=== PATIENT | female | born 1960 | race Asian ===

== ENCOUNTER → 2017-11-18 | Outpatient (CLI) | payer OTHER ==
[~2017-11-18] MED LIST: BUPIVACAINE MPF 0.25% 10 ML VIAL. ONE; LIDOCAINE 1% PF 30 ML VIAL. ONE; methylPREDNISolone ACETATE 40 MG/ML VIAL. ONE
== END | disposition home or self-care (01) ==
LOC: SURG 13:51
PROVIDERS: ATTEND Anesthesiology Pain Medicine
DX: M75.51 Bursitis of right shoulder (principal)
CPT/HCPCS: 99213; J1030; J2001; J3490

== ENCOUNTER 2019-07-11 22:28 | Emergency (ER) | payer OTHER ==
[~2019-07-11] VITALS: Ht 167.6 cm; Wt 83.5 kg
[2019-07-11] MEDS ORDERED: ORPHENADRINE CITRATE 60 MG/2 ML VIAL. IM ONE (23:00)
[2019-07-11] MEDS ORDERED: HYDR-3165 PO (23:01)
[2019-07-11] MEDS ORDERED: METH-38 PO (23:01)
--- NOTE | 2019-07-11 23:02 | PHYS DOC ---
Past History Past Medical History: DVT Additional Past Medical Histor: takes xarelto. Past Surgical History: Hysterectomy Additional Past Surgical Histo: dental implant Alcohol Use: None Drug Use: None Adult General Chief Complaint Chief Complaint: SHOULDER INJURY HPI HPI Patient is a 58-year-old female who presents with neck and right shoulder pain. She states she tripped and marely her neck last night. She woke up this morning unable to move her neck in all directions. She states she had some pain radiating to the right shoulder. She states it just feels tight to try to turn her neck. She denies any bowel or bladder dysfunction. Review of Systems Review of Systems Constitutional: Denies fever or chills [] Eyes: Denies change in visual acuity, redness, or eye pain [] HENT: Denies nasal congestion or sore throat [] Respiratory: Denies cough or shortness of breath [] Cardiovascular: No additional information not addressed in HPI [] GI: Denies abdominal pain, nausea, vomiting, bloody stools or diarrhea [] : Denies dysuria or hematuria [] Musculoskeletal: Per history of present illness[] Integument: Denies rash or skin lesions [] Neurologic: Denies headache, focal weakness or sensory changes [] Endocrine: Denies polyuria or polydipsia [] All other systems were reviewed and found to be within normal limits, except as documented in this note. Allergies Allergies Allergies Coded Allergies Type Severity Reaction Last Updated Verified cephalexin Allergy Unknown 07/11/19 Yes ibuprofen Allergy Unknown 07/11/19 Yes iodine Allergy Unknown 07/11/19 Yes levofloxacin Allergy Unknown 07/11/19 Yes Physical Exam Physical Exam Constitutional: Well developed, well nourished, no acute distress, non-toxic appearance. [] HENT: Normocephalic, atraumatic, bilateral external ears normal, oropharynx moist, no oral exudates, nose normal. [] Eyes: PERRLA, EOMI, conjunctiva normal, no discharge. [] Neck: Decreased range of motion secondary to pain. There is no midline vertebral tenderness she does have some right paraspinal muscle spasm and some spasm in the right trapezius.. [] Cardiovascular:Heart rate regular rhythm, no murmur [] Lungs & Thorax: Bilateral breath sounds clear to auscultation [] Abdomen: Bowel sounds normal, soft, no tenderness, no masses, no pulsatile masses. [] Skin: Warm, dry, no erythema, no rash. [] Back: No tenderness, no CVA tenderness. [] Extremities: No tenderness, no cyanosis, no clubbing, ROM intact, no edema. [] Neurologic: Alert and oriented X 3, normal motor function, normal sensory function, no focal deficits noted. [] Psychologic: Affect normal, judgement normal, mood normal. [] Current Patient Data Vital Signs Vital Signs Date Time Temp Pulse Resp B/P (MAP) Pulse Ox O2 Delivery O2 Flow Rate FiO2 07/11/19 22:39 98.2 76 16 96 Room Air EKG EKG [] Radiology/Procedures Radiology/Procedures [] Course & Med Decision Making Course & Med Decision Making Pertinent Labs and Imaging studies reviewed. (See chart for details) [] Dragon Disclaimer Dragon Disclaimer This electronic medical record was generated, in whole or in part, using a voice recognition dictation system. Departure Departure: Impression: Primary Impression: Acute cervical sprain Disposition: HOME, SELF-CARE Condition: STABLE Referrals: MOE GUZMAN DO (PCP) Patient Instructions: Cervical Sprain, Cervical Strain and Sprain with Rehab- [facility] Additional Instructions: Return to emergency department with any new or concerning symptoms Scripts Methocarbamol (ROBAXIN-750) 750 Mg Tablet 1 TAB PO BID for MUSCLE SPASM for 30 Days, #60 TAB 0 Refills Prov: EULALIA LEHMAN DO 07/11/19 Hydrocodone Bit/Acetaminophen (NORCO 5-325 TABLET) 1 Each Tablet 1-2 TAB PO Q4-6HRS for PAIN, #20 TAB Prov: EULALIA LEHMAN DO 07/11/19 Problem Qualifiers Primary Impression: Acute cervical sprain Encounter type: initial encounter Qualified Codes: S13.9XXA - Sprain of joints and ligaments of unspecified parts of neck, initial encounter EULALIA LEHMAN DO Jul 11, 2019 23:02
[2019-07-11 23:32] VITALS: BP 125/86
[2019-07-19] MEDS ORDERED: RIVA10TA PO (10:59)
== END 2019-07-11 23:32 | disposition home or self-care (01) ==
LOC: ER 22:28
DX: S13.9XXA Sprain of joints and ligaments of unspecified parts of neck, initial encounter (principal); Z86.718 Personal history of other venous thrombosis and embolism; Z88.1 Allergy status to other antibiotic agents; Z88.5 Allergy status to narcotic agent; Z88.6 Allergy status to analgesic agent; Z88.8 Allergy status to other drugs, medicaments and biological substances; W01.0XXA Fall on same level from slipping, tripping and stumbling without subsequent striking against object, initial encounter; Y93.89 Activity, other specified; Y92.89 Other specified places as the place of occurrence of the external cause; Y99.8 Other external cause status
CPT/HCPCS: 96372; 99283; J2360

== ENCOUNTER → 2019-07-21 | Day surgery (SDC) | payer OTHER ==
[~2019-07-21] MED LIST changes: +ACETAMINOPHEN 325 MG TABLET PO PRN; +ALBUTEROL SULFATE 2.5 MG/3 ML NEBU. NEB PRN; +ATROPINE 0.5 MG/5 ML DISP.SYRIN. IV PRN; -BUPIVACAINE MPF 0.25% 10 ML VIAL. ONE; +HYDR-3165 PO; +IV RINGERS SOLUTION,LACTATED 1,000 ML IV SCH; -LIDOCAINE 1% PF 30 ML VIAL. ONE; +METH-38 PO; +MIDAZOLAM HCL PF 2 MG/2 ML VIAL. IV PRN; +ONDANSETRON PF 4 MG/2 ML VIAL. IV PRN; +PHENOL ORAL SPRAY 177ML BOTTLE. MM PRN; +PROPOFOL 40 ML IV ONE; +RIVA10TA PO; +diphenhydrAMINE 50 MG/ML VIAL IV PRN; -methylPREDNISolone ACETATE 40 MG/ML VIAL. ONE
[2019-07-21 13:03] VITALS: BP 106/67
== END | disposition home or self-care (01) ==
LOC: SURG 09:43
PROVIDERS: ATTEND Internal Medicine Gastroenterology
DX: Z12.11 Encounter for screening for malignant neoplasm of colon (principal); K64.8 Other hemorrhoids; K63.89 Other specified diseases of intestine; J45.909 Unspecified asthma, uncomplicated; Z91.041 Radiographic dye allergy status; Z88.8 Allergy status to other drugs, medicaments and biological substances; Z79.899 Other long term (current) drug therapy; Z86.718 Personal history of other venous thrombosis and embolism; Z98.890 Other specified postprocedural states
CPT/HCPCS: 45378; J2704; J7120

== ENCOUNTER 2019-08-06 15:57 | Emergency (ER) | payer OTHER ==
[~2019-08-06] VITALS: Ht 167.6 cm; Wt 81.8 kg
[2019-08-06 15:57] VITALS: BP 116/63
[~2019-08-06 15:57] MED LIST changes: -ACETAMINOPHEN 325 MG TABLET PO PRN; -ALBUTEROL SULFATE 2.5 MG/3 ML NEBU. NEB PRN; -ATROPINE 0.5 MG/5 ML DISP.SYRIN. IV PRN; -IV RINGERS SOLUTION,LACTATED 1,000 ML IV SCH; -MIDAZOLAM HCL PF 2 MG/2 ML VIAL. IV PRN; -ONDANSETRON PF 4 MG/2 ML VIAL. IV PRN; -PHENOL ORAL SPRAY 177ML BOTTLE. MM PRN; -PROPOFOL 40 ML IV ONE; -diphenhydrAMINE 50 MG/ML VIAL IV PRN
--- NOTE | 2019-08-06 16:19 | PHYS DOC ---
Past History Past Medical History: DVT (and pulmonary embolism) Additional Past Medical Histor: takes xarelto. Past Surgical History: Hysterectomy Additional Past Surgical Histo: dental implant Alcohol Use: None Drug Use: None Adult General Chief Complaint Chief Complaint: SORE THROAT [facility] HPI patient is a 58-year-old female who presents to the emergency department for evaluation. She has had nasal congestion and sinus pressure on and off for the past 10 days. She was seen at urgent care last week, and got slightly better over the weekend but developed some postnasal drip and a sore throat over the past 24 hours, she feels there is something stuck in her throat, when she swallows, but she is able to talk and swallow normally, and is having no stridor or difficulty breathing. She has not had any fevers or chills, focal headache, vision changes, chest pain, or significant shortness of breath. There are no alleviating or exacerbating factors to her symptoms. Patient denies recent travel. She states she was put on doxycycline at her urgent care visit. Review of Systems Review of Systems Constitutional: Denies fever or chills [] Eyes: Denies change in visual acuity, redness, or eye pain [] HENT: As per history of present illness[] Respiratory: Denies cough or shortness of breath [] Cardiovascular: No additional information not addressed in HPI [] GI: Denies abdominal pain, nausea, vomiting, bloody stools or diarrhea [] : Denies dysuria or hematuria [] Musculoskeletal: Denies back pain or joint pain [] Integument: Denies rash or skin lesions [] Neurologic: Denies headache, focal weakness or sensory changes [] Endocrine: Denies polyuria or polydipsia [] All other systems were reviewed and found to be within normal limits, except as documented in this note. Allergies Allergies Allergies Coded Allergies Type Severity Reaction Last Updated Verified cephalexin Allergy Unknown 07/21/19 Yes ibuprofen Allergy Unknown 07/21/19 Yes iodine Allergy Unknown 07/21/19 Yes levofloxacin Allergy Unknown 07/21/19 Yes Physical Exam Physical Exam PHYSICAL EXAM: CONSTITUTIONAL: Well developed, well nourished HEAD: normocephalic, atraumatic EENT: PERRL, EOMI. Conjunctivae normal color, sclerae non-icteric; moist mucous membranes. Tympanic membranes are normal. There is mild pharyngeal erythema without exudate, uvula deviation, or peritonsillar edema. NECK: Supple, non-tender; no meningismus. There is mildly enlarged, but nontender, submandibular lymphadenopathy. There is no tenderness to palpation of the larynx, there is no stridor. Voice is normal. Patient speaks in full sentences. LUNGS: Lungs CTA, breathing even and unlabored. Normal air movement. HEART: Regular rate and rhythm, no murmur CHEST: No deformity; non-tender ABDOMEN: The abdomen is soft, and non-tender, no masses or bruits. EXTREM: Normal ROM; no deformity, no calf tenderness. Normal pulses palpable in all extremities. There is no pedal edema. SKIN: No rash; no diaphoresis NEURO: Alert; normal speech and cognition; CN's grossly intact; strength grossly intact without focal deficit. BACK: No CVA TTP. EKG EKG [] Radiology/Procedures Radiology/Procedures PROCEDURE: CHEST PA & LATERAL CHEST PA LATERAL INDICATION: Dyspnea. COMPARISON STUDY: None. FINDINGS: Lungs: Normal lung volume. No pulmonary mass or consolidation. The tracheobronchial tree and hilar structures are normal. Pleura: No pleural effusion or pneumothorax. Heart and Mediastinum: The cardiomediastinal silhouette is normal. The great vessels of the thorax are normal. Bones and Soft Tissues: The bones and soft tissues are within normal limits. IMPRESSION: No acute cardiopulmonary process.[] PROCEDURE: NECK SOFT TISSUE NECK SOFT TISSUE DATE: 08/06/2019 4:13 PM INDICATION: Throat pain COMPARISON: None. FINDINGS/ IMPRESSION: No prevertebral soft tissue swelling. No epiglottic swelling. No opaque foreign body. Mild multilevel degenerative disc disease. Course & Med Decision Making Course & Med Decision Making Strep/flu negative. Pertinent Labs and Imaging studies reviewed. (See chart for details) [] Patient remains stable. I discussed test results, the need for close follow- up,Home care plan and expectant management,and return precautions. Dragon Disclaimer Dragon Disclaimer This electronic medical record was generated, in whole or in part, using a voice recognition dictation system. Departure Departure: Impression: Primary Impression: Upper respiratory infection Disposition: HOME, SELF-CARE Condition: STABLE Referrals: MOE GUZMAN DO (PCP) Patient Instructions: Upper Respiratory Infection, Adult, Viral Pharyngitis JOSE CRAWFORD MD Aug 06, 2019 16:18
[2019-08-06 16:42] LABS: INFLUENZA A PATIENT NEGATIVE (NEGATIVE); INFLUENZA B PATIENT NEGATIVE (NEGATIVE)
--- NOTE | 2019-08-06 17:37 | RAD ---
CHEST PA LATERAL INDICATION: Dyspnea. COMPARISON STUDY: None. FINDINGS: Lungs: Normal lung volume. No pulmonary mass or consolidation. The tracheobronchial tree and hilar structures are normal. Pleura: No pleural effusion or pneumothorax. Heart and Mediastinum: The cardiomediastinal silhouette is normal. The great vessels of the thorax are normal. Bones and Soft Tissues: The bones and soft tissues are within normal limits. IMPRESSION: No acute cardiopulmonary process. Electronically signed by: Enio Segura MD (08/06/2019 5:34 PM) [facility]
--- NOTE | 2019-08-06 17:44 | RAD ---
NECK SOFT TISSUE DATE: 08/06/2019 4:13 PM INDICATION: Throat pain COMPARISON: None. FINDINGS/ IMPRESSION: No prevertebral soft tissue swelling. No epiglottic swelling. No opaque foreign body. Mild multilevel degenerative disc disease. Electronically signed by: Enio Segura MD (08/06/2019 5:41 PM) [facility]
== END 2019-08-06 17:59 | disposition home or self-care (01) ==
LOC: ER 15:57
DX: J06.9 Acute upper respiratory infection, unspecified (principal); R09.81 Nasal congestion; L53.9 Erythematous condition, unspecified; Z86.718 Personal history of other venous thrombosis and embolism; Z90.710 Acquired absence of both cervix and uterus; Z98.890 Other specified postprocedural states; Z88.1 Allergy status to other antibiotic agents; Z88.6 Allergy status to analgesic agent
CPT/HCPCS: 70360; 71046; 87070; 87804; 87880; 99285

== ENCOUNTER 2020-11-27 11:51 | Emergency (ER) | payer OTHER ==
[~2020-11-27] VITALS: Ht 167.6 cm; Wt 80.1 kg
[2020-11-27 12:00] VITALS: BP 145/84
--- NOTE | 2020-11-27 12:13 | PHYS DOC ---
Past History Past Medical History: DVT Additional Past Medical Histor: takes xarelto. PE Past Surgical History: Hysterectomy Additional Past Surgical Histo: dental implant Alcohol Use: None Drug Use: None Adult General Chief Complaint Chief Complaint: BACK PAIN OR INJURY [facility] HPI Patient is a 60-year-old female presenting for right-sided chest wall pain. Onset was approximately 2 weeks ago without any known inciting event, mechanism of injury or trauma. Patient has been providing supportive care to her self, icing region, taking Tylenol as needed for pain and getting in the hot tub which has provided moderate symptomatic relief. Nonetheless, patient reports acute worsening approximately 4 days ago. States she has been doing more yard work than usual which has exacerbated her right chest wall and right paraspinal pain. She saw her massage therapist and chiropractor in outpatient setting and was told she had "really tight back muscles". No invasive techniques such as "popping or cracking" were performed. States she receives soft tissue treatments which helped her pain. No fever, vision changes, chest pain, ripping or tearing sensation in chest, pleuritic pain, cough, abdominal pain, urinary symptoms. She attempted to follow-up with primary care physician today but they were full and so, it was recommended that she seek care at our ER for evaluation Review of Systems Review of Systems Fourteen body systems of review of systems have been reviewed. See HPI for pertinent positives and negative responses, other beck all other systems are negative, non-pertinent or non-contributory Allergies Allergies Allergies Coded Allergies Type Severity Reaction Last Updated Verified cephalexin Allergy Unknown 07/21/19 Yes ibuprofen Allergy Unknown 07/21/19 Yes iodine Allergy Unknown 07/21/19 Yes levofloxacin Allergy Unknown 07/21/19 Yes Physical Exam Physical Exam Constitutional: Well developed, well nourished, no acute distress, non-toxic appearance. Ambulatory and cheerful throughout entirety of examination HENT: Normocephalic, atraumatic, bilateral external ears normal, oropharynx moist, no oral exudates, nose normal. Eyes: PERRLA, EOMI, conjunctiva normal, no discharge. Neck: Normal range of motion, no tenderness, supple, no stridor. Cardiovascular: Heart rate regular, sinus rhythm, no murmurs rubs or gallops, right-sided chest wall pain without palpable nor visible abnormalities, no flail chest Lungs & Thorax: Bilateral breath sounds clear to auscultation Abdomen: Bowel sounds normal, soft, no tenderness, no masses, no pulsatile ma sses. Nonsurgical abdomen, no peritoneal signs Skin: Warm, dry, no erythema, no rash. Back: No midline tenderness, no CVA tenderness. Patient does have tight paraspinal muscle spasm at level of T3-6 Extremities: No tenderness, no cyanosis, no clubbing, ROM intact, no edema. Neurologic: Alert and oriented X 3, grossly normal motor & sensory function, no focal deficits noted. Psychologic: Affect normal, judgement normal, mood normal. Current Patient Data Vital Signs Vital Signs Date Time Temp Pulse Resp B/P (MAP) Pulse Ox O2 Delivery O2 Flow Rate FiO2 11/27/20 12:00 97.9 76 18 145/84 (104) 96 Room Air Vital Signs Date Time Temp Pulse Resp B/P (MAP) Pulse Ox O2 Delivery O2 Flow Rate FiO2 11/27/20 12:00 97.9 76 18 145/84 (104) 96 Room Air Lab Results Laboratory Tests Test 11/27/20 13:48 Urine Collection Type Unknown Urine Color Straw Urine Clarity Clear Urine pH 6.0 Urine Specific [place] <=1.005 Urine Protein Neg Urine Glucose (UA) Neg mg/dL Urine Ketones (Stick) Neg mg/dL Urine Blood Neg Urine Nitrite Neg Urine Bilirubin Neg Urine Urobilinogen Dipstick 0.2 mg/dL Urine Leukocyte Esterase Neg Urine RBC 0 /HPF Urine WBC 0 /HPF Urine Bacteria 0 /HPF EKG EKG EKG ordered and interpreted by myself at 1313 hrs. as sinus rhythm at 65 bpm, unremarkable intervals, no axis deviation, no acute ischemic findings, no STEMI Radiology/Procedures Radiology/Procedures EXAM: Chest and right ribs, 4 views. HISTORY: Chest wall pain. COMPARISON: None. FINDINGS: A frontal view of the chest and 3 views of the right ribs are o btained. There is no infiltrate, pleural effusion or pneumothorax. There is suspected left lower lobe atelectasis or scarring. There are calcified granulomas. No displaced fracture is seen. IMPRESSION: No acute pulmonary or osseous finding. Electronically signed by: Nery Rolle MD (11/27/2020 12:44 PM) [id number] ///////////////// EXAM: Renal sonogram. HISTORY: Right flank pain. TECHNIQUE: Sonographic imaging the kidneys and bladder was performed. COMPARISON: None. FINDINGS: The kidneys are normal in size. No solid or cystic renal lesion is seen. There is mild left hydronephrosis. The aorta is normal in caliber. The inferior vena cava is patent. The prevoid bladder volume is 37 cc. IMPRESSION: 1. Mild left hydronephrosis. 2. Otherwise, unremarkable renal sonogram. Electronically signed by: Nery Rolle MD (11/27/2020 2:11 PM) [id number] Heart Score C/O Chest Pain: No HEART Score for Chest Pain: HEART Score for Chest Pain Response (Comments) Value Age >45 - < 65 1 Risk Factors 1 or 2 Risk Factors 1 Total 2 Risk Factors: Risk Factors: DM, Current or recent (<one month) smoker, HTN, HLP, family history of CAD, obesity. Risk Scores: Risk Factors: DM, Current or recent (<one month) smoker, HTN, HLP, family history of CAD, obesity. Course & Med Decision Making Course & Med Decision Making Discussed with the patient all findings and diagnostic testing. I discussed most likely diagnosis of back strain/strain. Patient's [id number] presented to bedside and assisted with history gathering, we discussed ER work-up so far, unremarkable vitals, physical exam findings and ER work-up. 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 I stressed need for close outpatient follow-up to review today's ER visit. Strict return precautions were also discussed at length with good understanding by patient. Patient voiced understanding and agreement with the plan. Patient knows to come back for repeat evaluation if concerning signs or symptoms present prior to outpatient follow-up. Hemodynamically stable, ambulatory and well-appearing at time of disposition. Dragon Disclaimer Dragon Disclaimer This electronic medical record was generated, in whole or in part, using a voice recognition dictation system. Departure Departure: Impression: Primary Impression: Upper back strain Disposition: HOME / SELF CARE / HOMELESS Condition: STABLE Referrals: MOE GUZMAN DO (PCP) Patient Instructions: Mid-Back Strain with Rehab-[facility] Additional Instructions: It is likely that you have experienced a sprain/strain that is causing you pain. The best treatment for this injury is continued range of motion and supportive care practices which you are already implementing such as Tylenol for pain, soft tissue therapy techniques such as those you are receiving at massage therapy and stretching. As disclosed, this might be an acute presentation of more concerning/underlying pathology but at present, there is little indication for further diagnostic work-up in ER setting. As discussed, it is advised you cont act your primary care physician immediately after ER departure to review ER visit and need for close outpatient follow-up. If any concerning signs or symptoms present prior to outpatient follow-up please do not hesitate to come back for repeat evaluation. It was a pleasure to take care of you and I wish you the best going forward MARTINEZ JO DO November 27, 2020 12:13
--- NOTE | 2020-11-27 12:47 | RAD ---
EXAM: Chest and right ribs, 4 views. HISTORY: Chest wall pain. COMPARISON: None. FINDINGS: A frontal view of the chest and 3 views of the right ribs are obtained. There is no infiltr ate, pleural effusion or pneumothorax. There is suspected left lower lobe atelectasis or scarring. Th ere are calcified granulomas. No displaced fracture is seen. IMPRESSION: No acute pulmonary or osseous finding. Electronically signed by: Nery Rolle MD (11/27/2020 12:44 PM) [id number]
--- NOTE | 2020-11-27 13:43 | EKG ---
[address] [address] Test Date: 2020-11-27 Test Time: 13:13:16 Pat Name: JOAQUÍN CHASE Department: Room: Gender: F Organizational Development Specialist: KENNEDI : 1960 Requested By: MARTINEZ JO Order Number: [id number] Reading MD: Measurements Intervals [place] Rate: 65 P: 38 NE: 188 QRS: 70 QRSD: 92 T: 26 QT: 328 QTc: 345 Interpretive Statements SINUS RHYTHM NORMAL ECG RI6.02 No previous ECG available for comparison
--- NOTE | 2020-11-27 14:13 | RAD ---
EXAM: Renal sonogram. HISTORY: Right flank pain. TECHNIQUE: Sonographic imaging the kidneys and bladder was performed. COMPARISON: None. FINDINGS: The kidneys are normal in size. No solid or cystic renal lesion is seen. There is mild left hydronephrosis. The aorta is normal in caliber. The inferior vena cava is patent. The prevoid bladde r volume is 37 cc. IMPRESSION: 1. Mild left hydronephrosis. 2. Otherwise, unremarkable renal sonogram. Electronically signed by: Nery Rolle MD (11/27/2020 2:11 PM) [id number]
[2020-11-27 14:30] LABS: BACTERIA,URINE 0 /HPF (0-FEW); BILIRUBIN,URINE NEG (NEG); CLARITY,URINE CLEAR; COLOR,URINE STRAW; GLUCOSE,URINE NEG (NEG); NITRITE,URINE NEG (NEG); RBC,URINE 0 /HPF (0-2); UROBILINOGEN,URINE 0.2 mg/dL (0.2 mg/dL); WBC,URINE 0 /HPF (0-4)
== END 2020-11-27 14:50 | disposition home or self-care (01) ==
LOC: ER 11:51
DX: S29.012A Strain of muscle and tendon of back wall of thorax, initial encounter (principal); R07.89 Other chest pain; Z86.718 Personal history of other venous thrombosis and embolism; Z88.1 Allergy status to other antibiotic agents; Z88.8 Allergy status to other drugs, medicaments and biological substances; X58.XXXA Exposure to other specified factors, initial encounter; Y93.89 Activity, other specified; Y92.89 Other specified places as the place of occurrence of the external cause; Y99.8 Other external cause status
CPT/HCPCS: 71101; 76770; 81001; 93005; 99285

== ENCOUNTER 2021-03-28 17:30 | Emergency (ER) | payer OTHER ==
[~2021-03-28] VITALS: Ht 167.6 cm; Wt 82.4 kg
--- NOTE | 2021-03-28 18:19 | RAD ---
Two-view soft tissue neck HISTORY: Sensation of fishbone stuck in AP lateral views There is straightening of the normal cervical lordosis which could be positional or could be secondar y muscle spasm. As no prevertebral soft tissue swelling. As no opaque foreign body seen although ther e is calcification of the laryngeal cartilage. IMPRESSION: No acute findings. No radiopaque foreign body seen. Electronically signed by: Nam Franklin III, MD (03/28/2021 6:17 PM) [facility]
--- NOTE | 2021-03-28 18:19 | PHYS DOC ---
Past History Past Medical History: DVT Additional Past Medical Histor: takes xarelto. PE (REECE MCINTYRE APRN) Past Surgical History: Hysterectomy Additional Past Surgical Histo: dental implant (REECE MCINTYRE APRN) Alcohol Use: None Drug Use: None (REECE MCINTYRE APRN) General Adult EDM: Chief Complaint: FOREIGN BODY HPI: HPI: Patient is a 60-year-old female who presents with fishbone in her throat. Patient states "I was eating dinner tonight and I felt I got a bone stuck in my throat". Patient denies shortness of breath. Denies nausea or vomiting. patient is able to maintain secretions. (REECE MCINTYRE APRN) Review of Systems: Review of Systems: Constitutional: Denies fever or chills Eyes: Denies change in visual acuity HENT: Denies nasal congestion, reports throat pain Respiratory: Denies cough or shortness of breath Cardiovascular: Denies chest pain or edema GI: Denies abdominal pain, nausea, vomiting, bloody stools or diarrhea : Denies dysuria Musculoskeletal: Denies back pain or joint pain Integument: Denies rash Neurologic: Denies headache, focal weakness or sensory changes Endocrine: Denies polyuria or polydipsia Lymphatic: Denies swollen glands Psychiatric: Denies depression or anxiety (REECE MCINTYRE APRN) Allergies: Allergies: Allergies Coded Allergies Type Severity Reaction Last Updated Verified cephalexin Allergy Unknown 03/28/21 Yes ibuprofen Allergy Unknown 03/28/21 Yes iodine Allergy Unknown 03/28/21 Yes levofloxacin Allergy Unknown 03/28/21 Yes (REECE MCINTYRE APRN) Physical Exam: PE: Constitutional: Well developed, well nourished, no acute distress, non-toxic appearance. [] HENT: Normocephalic, atraumatic, bilateral external ears normal, oropharynx moist, no oral exudates, nose normal. [] Eyes: PERRLA, EOMI, conjunctiva normal, no discharge. [] Neck: Normal range of motion, no tenderness, supple, no stridor. [] Cardiovascular:Heart rate regular rhythm, no murmur [] Lungs & Thorax: Bilateral breath sounds clear to auscultation [] Abdomen: Bowel sounds normal, soft, no tenderness, no masses, no pulsatile masses. [] Skin: Warm, dry, no erythema, no rash. [] Back: No tenderness, no CVA tenderness. [] Extremities: No tenderness, no cyanosis, no clubbing, ROM intact, no edema. [] Neurologic: Alert and oriented X 3, normal motor function, normal sensory function, no focal deficits noted. [] Psychologic: Affect normal, judgement normal, mood normal. [] (REECE MCINTYRE APRN) Current Patient Data: Vital Signs: Vital Signs Date Time Temp Pulse Resp B/P (MAP) Pulse Ox O2 Delivery O2 Flow Rate FiO2 03/28/21 17:40 98.1 61 16 110/67 (81) 99 Room Air (REECE MCINTYRE APRN) EKG: EKG: [] (REECE MCINTYRE APRN) Radiology/Procedures: Radiology/Procedures: []Two-view soft tissue neck HISTORY: Sensation of fishbone stuck in AP lateral views There is straightening of the normal cervical lordosis which could be positional or could be secondary muscle spasm. As no prevertebral soft tissue swelling. As no opaque foreign body seen although there is calcification of the laryngeal cartilage. IMPRESSION: No acute findings. No radiopaque foreign body seen. Electronically signed by: Nam Franklin III, MD (03/28/2021 6:17 PM) [facility] (REECE MCINTYRE APRN) Heart Score: C/O Chest Pain: No Risk Factors: Risk Factors: DM, Current or recent (<one month) smoker, HTN, HLP, family history of CAD, obesity. Risk Scores: Score 0 - 3: 2.5% MACE over next 6 weeks - Discharge Home Score 4 - 6: 20.3% MACE over next 6 weeks - Admit for Clinical Observation Score 7 - 10: 72.7% MACE over next 6 weeks - Early Invasive Strategies (REECE MCINTYRE APRN) Course & Med Decision Making: Course & Med Decision Making Pertinent Labs and Imaging studies reviewed. (See chart for details) [] 60-year-old female who presents with sore throat. Patient states that she was eating dinner tonight and feels like she got a fishbone stuck in her throat. Unable to visualize any foreign body on physical exam. Patient is able to maintain secretions. Denies shortness of breath, cough, nausea or vomiting. Soft tissue neck and throat x-ray ordered to rule out foreign body. X-ray is unremarkable. Discussed results with patient. Suggested lidocaine to help with pain. Explained to patient she most likely swallowed a bone and irritated her throat which is what is causing her pain at this time. Explained to patient she would need to call her PCP on Wednesday make a follow-up appointment for possibly a referral for GI if pain continues. Patient states that she understands. (REECE MCINTYRE APRN) [place] Disclaimer: Christen Disclaimer: This electronic medical record was generated, in whole or in part, using a voice recognition dictation system. (REECE MCINTYRE APRN) Departure Departure: Impression: Primary Impression: Sensation of foreign body in throat Disposition: HOME / SELF CARE / HOMELESS Condition: STABLE Referrals: MOE GUZMAN DO (PCP) Patient Instructions: Swallowed Foreign Body, Adult, [id number] Additional Instructions: You are seen in the emergency room after eating fish and feeling like you had a bone stuck in your throat. We performed an x-ray of your neck, which was unremarkable. You were given lidocaine to help with the pain. I think you most likely irritated your throat when you swallowed the fishbone. If your pain continues please call your PCP on Wednesday make a follow-up appointment for possible referral for GI. You may need to further testing done such as an EGD. Take ibuprofen and Tylenol at home for pain. Return to the emergency room if you have trouble breathing, shortness of breath, unable to manage her own secretions. EMERGENCY DEPARTMENT GENERAL DISCHARGE INSTRUCTIONS Thank you for coming to [facility] (ED) today and trusting us with you care. We trust that you had a positivie experience in our Emergency Department. If you wish to speak to the department management, you may call the director at [phone]. YOUR FOLLOW UP INSTRUCTIONS ARE FOLLOWS: 1. Do you have a private Doctor? If you do not have a private doctor, please ask for a resource list of physicians or clinics that may be able to assist you with follow up care. 2. The Emergency Physician has interpreted your x-rays. The X-Ray specialist will also review them. If there is a change in the findings, you will be notified in 48 hours when at all possible. 3. A lab test or culture has been done, your results will be reviewed and you will be notified if you need a change in treatment. ADDITIONAL INSTRUCTIONS AND INFORMATION: 1. Your care today has been supervised by a physician who is specially trained in emergency care. Many problems require more than one evaluation for a complete diagnosis and treatment. We recommend that you schedule your follow up appointment as recommended to ensure complete treatment of you illness or injury. If you are unable to obtain follow up care and continue to have a problem, or if your condition worsens, we recommend that you return to the ED. 2. We are not able to safely determine your condition over the phone nor are we able to give sound medical advice over the phone. For these safety reasons, if you call for medical advice we will ask you to come to the ED for further evaluation. 3. If you have any questions regarding these discharge instructions please call the ED at [phone]. SAFETY INFORMATION: In the interest of safety, wellness, and injury prevention; we encourage you to wear your sealbelt, if you smoke; quite smoking, and we encourage family to use a protective helmet for bicycling and other sporting events that present an increased risk for head injury. IF YOUR SYMPTOMS WORSEN OR NEW SYMPTOMS DEVELOP, OR YOU HAVE CONCERNS ABOUT YOUR CONDITION; OR IF YOUR CONDITION WORSENS WHILE YOU ARE WAITING FOR YOUR FOLLOW UP APPOINTMENT; EITHER CONTACT YOUR PRIMARY CARE DOCTOR, THE PHYSICIAN WHOSE NAME AND NUMBER YOU WERE GIVEN, OR RETURN TO THE ED IMMEDIATELY. Attending Signature Attending Signature I have reviewed the PA/FINANCIAL INTERN's note and plan of care. I was available for consultation as needed during the patient's visit in the emergency department. I agree with the clinical impression, plan, and disposition. (TAYLOR HO DO) REECE MCINTYRE APRN Mar 28, 2021 18:19 TAYLOR HO DO Mar 28, 2021 21:32
[2021-03-28] MEDS ORDERED: LIDO:MAALOX 1:1 20 ML SINGLE DOSE. PO ONE (19:15)
[2021-03-28] MEDS ORDERED: LIDO:MAALOX 1:1 20 ML SINGLE DOSE. ONE (19:20)
[2021-03-28 19:35] VITALS: BP 113/69
== END 2021-03-28 19:41 | disposition home or self-care (01) ==
LOC: ER 17:41
DX: R09.89 Other specified symptoms and signs involving the circulatory and respiratory systems (principal); Z88.1 Allergy status to other antibiotic agents; Z88.6 Allergy status to analgesic agent; Z90.710 Acquired absence of both cervix and uterus
CPT/HCPCS: 70360; 99283-25

== ENCOUNTER 2021-11-18 18:05 | Emergency (ER) | payer OTHER ==
[~2021-11-18] VITALS: Ht 167.6 cm; Wt 80.0 kg
[2021-11-18] MEDS ORDERED: methylPREDNISolone SOD SUCC PF 125 MG/2 ML VIAL. IM ONE (19:00)
[2021-11-18] MEDS ORDERED: HYDR25TA PO (19:08)
--- NOTE | 2021-11-18 19:08 | PHYS DOC ---
Past History Past Medical History: DVT Additional Past Medical Histor: takes xarelto. PE Past Surgical History: Hysterectomy Additional Past Surgical Histo: dental implant Alcohol Use: None Drug Use: None General Adult EDM: Chief Complaint: SKIN PROBLEM HPI: HPI: Patient is a 61-year-old female coming in for complaints of a itchy burning rash to her face as long as some swelling. Patient states that a few days ago she was out gardening and had wiped her face several times and began to feel symptoms. Saw her primary care provider 2 days ago who prescribed a Medrol Dosepak but has not started it. Patient is vomiting antihistamines. Patient is requesting a steroid injection. Review of Systems: Review of Systems: All other systems within normal limits except for as noted in the HPI Current Medications: Current Meds: Current Medications Medications (Trade) Dose Ordered Sig/Robi Start Time Stop Time Status Last Admin Dose Admin Methylprednisolone Sodium Succinate (SOLU-Medrol 125MG VIAL) 125 mg 1X ONCE 11/18/21 19:00 11/18/21 19:01 UNV Allergies: Allergies: Allergies Coded Allergies Type Severity Reaction Last Updated Verified cephalexin Allergy Unknown 11/18/21 Yes ibuprofen Allergy Unknown 11/18/21 Yes iodine Allergy Unknown 11/18/21 Yes levofloxacin Allergy Unknown 11/18/21 Yes Physical Exam: PE: Constitutional: Well developed, well nourished, no acute distress, non-toxic appearance. [] HENT: Normocephalic, atraumatic, bilateral external ears normal, nose normal. [] Eyes: PERRLA, conjunctiva normal, no discharge. [] Neck: No rigidity, supple, no stridor. [] Cardiovascular: Regular rate and rhythm, brisk cap refill [] Lungs & Thorax: Non labored symmetric respirations, no tachypnea or respiratory distress [] Abdomen: Soft, nondistended. Skin: Warm, dry, mild erythema and hives to bilateral face with swelling around bottom eyelids. Back: Unremarkable Extremities: No deformities, range of motion grossly intact, no lower extremity edema [] Neurologic: Alert and oriented X 3, no focal deficits noted. [] Psychologic: Affect normal, judgement normal, mood normal. [] Current Patient Data: Vital Signs: Vital Signs Date Time Temp Pulse Resp B/P (MAP) Pulse Ox O2 Delivery O2 Flow Rate FiO2 11/18/21 18:10 97.7 70 18 129/87 (101) 98 EKG: EKG: [] Radiology/Procedures: Radiology/Procedures: [] Heart Score: C/O Chest Pain: No Risk Factors: Risk Factors: DM, Current or recent (<one month) smoker, HTN, HLP, family history of CAD, obesity. Risk Scores: Score 0 - 3: 2.5% MACE over next 6 weeks - Discharge Home Score 4 - 6: 20.3% MACE over next 6 weeks - Admit for Clinical Observation Score 7 - 10: 72.7% MACE over next 6 weeks - Early Invasive Strategies Course & Med Decision Making: Course & Med Decision Making Pertinent Labs and Imaging studies reviewed. (See chart for details) [] Dragon Disclaimer: Dragon Disclaimer: This electronic medical record was generated, in whole or in part, using a voice recognition dictation system. Departure Departure: Impression: Primary Impression: Contact dermatitis Disposition: HOME / SELF CARE / HOMELESS Condition: STABLE Referrals: MOE GUZMAN DO (PCP) Patient Instructions: Contact Dermatitis Scripts Hydroxyzine Hcl (HYDROXYZINE HCL) 25 Mg Tablet 25 MG PO PRN Q6-8HRS PRN for ITCHING, #20 TAB Prov: ALBA CHAND MD 11/18/21 ALBA CHAND MD November 18, 2021 19:08
== END 2021-11-18 19:21 | disposition home or self-care (01) ==
LOC: ER 18:05
DX: L25.9 Unspecified contact dermatitis, unspecified cause (principal); Z86.718 Personal history of other venous thrombosis and embolism; Z88.1 Allergy status to other antibiotic agents; Z88.8 Allergy status to other drugs, medicaments and biological substances
CPT/HCPCS: 96372; 99283; J2930